=== PATIENT | female | born 1995 | race Caucasian/White ===

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

== ENCOUNTER 2017-01-26 20:58 | Emergency (ER) | payer BC ==
[~2017-01-26] VITALS: Ht 175.3 cm; Wt 68.2 kg
[~2017-01-26 20:58] MED LIST: CYMBALTA 60MG60 MG PO; XANAX 0.5MG0.5 MG PO
[2017-01-26 21:04] VITALS: BP 140/73; PULSE 72; TEMP 98.1
[2017-01-26] MEDS ORDERED: NEXPLANON68 MG ID (22:14)
== END 2017-01-26 22:42 | disposition home or self-care (01) ==
LOC: COL.ER 20:58
DX: S09.90XA Unspecified injury of head, initial encounter (principal); S16.1XXA Strain of muscle, fascia and tendon at neck level, initial encounter; W10.8XXA Fall (on) (from) other stairs and steps, initial encounter; Y92.008 Other place in unspecified non-institutional (private) residence as the place of occurrence of the external cause

== ENCOUNTER 2018-07-02 03:01 | Emergency (ER) | payer BC ==
[~2018-07-02] VITALS: Ht 175.3 cm; Wt 70.5 kg
[~2018-07-02 03:01] MED LIST changes: +NEXPLANON68 MG ID
[2018-07-02 03:07] VITALS: TEMP 97.2
[2018-07-02 03:44] LABS: COLLECTION METHOD CLEAN CATCH
[2018-07-02 03:53] LABS: MUCOUS Present /lpf; PH 5 (5-8); URINE APPEARANCE Cloudy; URINE BACTERIA Rare /hpf; URINE BILIRUBIN Negative (NEGATIVE); URINE BLOOD Negative (NEGATIVE); URINE COLOR Amber; URINE GLUCOSE Negative (NEGATIVE); URINE KETONE 1+ (NEGATIVE); URINE LEUKOCYTE ESTERASE Negative (NEGATIVE); URINE NITRATE Negative (NEGATIVE); URINE PROTEIN(semi-quant) 1+ (NEGATIVE); URINE RBC 0-2 /hpf; URINE UROBILINOGEN Negative (NEGATIVE)
[2018-07-02 03:58] LABS: BASO % 0.2 % (0.0-2.0); EOS # 0.1 (0.0-0.7); EOS % 0.4 % (0-4.0); GRAN # 12.7 (1.4-6.5); GRAN % 87.4 % (42.2-75.2); HEMATOCRIT 48.6 % (35.0-45.0); HEMOGLOBIN 16.6 g/dl (12.0-15.0); LYMPH % 6.7 % (20.0-51.0); MEAN CELL VOLUME 87 fl (80.0-95.0); MEAN CORPUSCULAR HEMOGLOBIN 30 pg (26.0-32.0); MEAN CORPUSCULAR HGB CONC 34 g/dl (33.0-37.0); MEAN PLATELET VOLUME 10.3 fl (7.4-10.4); MONO # 0.7 (0.1-0.6); PLATELET COUNT 204 K/mm3 (130-400); RED BLOOD COUNT 5.59 M/mm3 (4.10-5.30); REDCELL DISTRIBUTION WIDTH-CV 11.9 % (11.5-14.5)
[2018-07-02 04:14] LABS: ALBUMIN 4.4 gm/dL (3.5-5.0); BILIRUBIN,TOTAL 0.8 mg/dL (0.0-1.0); CALCIUM 9.4 mg/dL (8.4-10.2); CREATININE, serum 0.82 mg/dL (0.52-1.25)
[2018-07-02] MEDS ORDERED: MACROBID 1100 MG/CAP PO (05:46)
[2018-07-02] MEDS ORDERED: ZOFRAN ODT4 MG PO (05:46)
[2018-07-02] MEDS ORDERED: CARAFATE 1GM1 G PO (05:52)
[2018-07-02] MEDS ORDERED: PROTONIX 40MG T40 MG PO (05:52)
[2018-07-02 06:20] VITALS: BP 115/72; PULSE 90
== END 2018-07-02 06:56 | disposition home or self-care (01) ==
LOC: COL.ER 03:01
PROVIDERS: Emergency Medicine
DX: K22.6 Gastro-esophageal laceration-hemorrhage syndrome (principal); R19.7 Diarrhea, unspecified; N39.0 Urinary tract infection, site not specified
CPT/HCPCS: J2405; J2550; J7030